=== PATIENT | female | born 1965 | race Caucasian/White ===

== ENCOUNTER → 2016-11-02 | Outpatient (CLI) | payer BC ==
[~2016-11-02] MED LIST: ADRENAL SUPPLEMENT PO; ALPR0.25 PO; ARMOUR THYROID PO; ASCO10007 PO; CHOL500014 PO; IODINE PO; LACT1CAP37 PO; VITA1CAP PO
== END | disposition home or self-care (01) ==
LOC: CFH 08:05
PROVIDERS: ATTEND Family Medicine
DX: N85.2 Hypertrophy of uterus (principal); K82.4 Cholesterolosis of gallbladder; G89.29 Other chronic pain
CPT/HCPCS: 76700; 76830

== ENCOUNTER → 2018-01-06 | Outpatient (CLI) | payer BC ==
[~2018-01-06] MED LIST changes: +ASCO100019 PO; -ASCO10007 PO; -CHOL500014 PO; +CHOL500045 PO
== END | disposition home or self-care (01) ==
LOC: CFH 09:33
PROVIDERS: ATTEND Internal Medicine
DX: J84.10 Pulmonary fibrosis, unspecified (principal); R91.8 Other nonspecific abnormal finding of lung field
CPT/HCPCS: 71250